=== PATIENT | female | born 1980 | race Caucasian/White ===

== ENCOUNTER 2023-01-08 10:42 | Outpatient (CLI) | payer OTHER | END 2023-01-08 10:46 | disposition home or self-care (01) | LOC: SONOGRAMA 10:42 | PROVIDERS: ATTEND Pathology Anatomic Pathology & Clinical Pathology | DX: D34 Benign neoplasm of thyroid gland (principal); E04.9 Nontoxic goiter, unspecified ==

== ENCOUNTER 2024-06-16 08:32 | Outpatient (CLI) | payer OTHER | END 2024-06-16 08:36 | disposition home or self-care (01) | LOC: SONOGRAMA 08:32 | PROVIDERS: ATTEND Pathology Anatomic Pathology | DX: D34 Benign neoplasm of thyroid gland (principal); E07.89 Other specified disorders of thyroid; E04.1 Nontoxic single thyroid nodule ==